=== PATIENT | female | born 1955 | race Caucasian/White ===

== ENCOUNTER 2016-05-24 07:49 | Day surgery (SDC) | payer MEDICARE, OTHER ==
[~2016-05-24] VITALS: Ht 170.2 cm; Wt 77.1 kg
[~2016-05-24 07:49] MED LIST: ASCORBIC ACD1000 MG PO; IBUPROFEN600 MG PO; LEVOTHYROXIN50 MCG PO; MECLIZINE25 M1 PO; PREVACID30 M3 PO; ULTRAM50 M1 PO; ZENPEP5000 UNIT PO; ZOFRAN ODT4 MG PO
[2016-05-24 10:33] VITALS: BP 118/65
== END 2016-05-24 10:50 | disposition home or self-care (01) ==
LOC: ENDO 07:49 → ORM 09:30 → ENDO 09:30
PROVIDERS: ATTEND Internal Medicine Gastroenterology
PROC: 0DBH8ZX Excision of Cecum, Via Natural or Artificial Opening Endoscopic, Diagnostic (ICD-10-PCS; principal; 2016-05-24)
PROC: 0DBN8ZX Excision of Sigmoid Colon, Via Natural or Artificial Opening Endoscopic, Diagnostic (ICD-10-PCS; 2016-05-24)
PROC: 0DBP8ZX Excision of Rectum, Via Natural or Artificial Opening Endoscopic, Diagnostic (ICD-10-PCS; 2016-05-24)
DX: Z12.11 Encounter for screening for malignant neoplasm of colon (principal); D12.5 Benign neoplasm of sigmoid colon; D12.0 Benign neoplasm of cecum; K62.1 Rectal polyp; K64.4 Residual hemorrhoidal skin tags; K64.8 Other hemorrhoids; K57.30 Diverticulosis of large intestine without perforation or abscess without bleeding; K74.60 Unspecified cirrhosis of liver; I85.10 Secondary esophageal varices without bleeding; B19.20 Unspecified viral hepatitis C without hepatic coma; R18.8 Other ascites; K29.60 Other gastritis without bleeding; K21.9 Gastro-esophageal reflux disease without esophagitis; Z86.010 Personal history of colon polyps; F17.210 Nicotine dependence, cigarettes, uncomplicated; E03.9 Hypothyroidism, unspecified

== ENCOUNTER 2017-02-19 14:55 | Emergency (ER) | payer MEDICARE, OTHER ==
[~2017-02-19] VITALS: Ht 170.2 cm; Wt 85.0 kg
[2017-02-19] MEDS ORDERED: FLEXERIL PO ×2 (15:19→15:35)
[2017-02-19] MEDS ORDERED: LORTAB 5/3255 MG PO (15:19)
[2017-02-19] MEDS ORDERED: PREDNISONE50 MG PO ×2 (15:19→15:35)
[2017-02-19 15:39] VITALS: BP 138/88
== END 2017-02-19 15:39 | disposition home or self-care (01) ==
LOC: ED 14:55
DX: S39.012A Strain of muscle, fascia and tendon of lower back, initial encounter (principal); F17.210 Nicotine dependence, cigarettes, uncomplicated; X50.0XXA Overexertion from strenuous movement or load, initial encounter; Y92.009 Unspecified place in unspecified non-institutional (private) residence as the place of occurrence of the external cause

== ENCOUNTER 2017-09-13 20:37 | Emergency (ER) | payer MEDICARE, OTHER ==
[~2017-09-13] VITALS: Ht 170.2 cm; Wt 81.8 kg
[~2017-09-13 20:37] MED LIST changes: +FLEXERIL PO; +LORTAB 5/3255 MG PO; +PREDNISONE50 MG PO
[2017-09-13 21:36] LABS: HEMATOCRIT 32.5 % (37.0-47.0); HEMOGLOBIN 11.6 g/dl (12.0-16.0); IMMATURE GRANULOCYTES 1.3 % (0.0-5.0); MEAN CELL VOLUME 96.4 fL CALC (80.0-100.0); MEAN CORPUSCULAR HGB 34.4 pG CALC (26.0-32.0); MEAN CORPUSCULAR HGB CONC 35.7 g/L CALC (32.0-36.0); NEUT# 15.7 thou/uL (2.00-7.15); RED BLOOD COUNT 3.37 mill/uL (4.20-5.60); RED CELL DISTRI WIDTH 15.7 % (11.5-15.5)
[2017-09-13 21:45] LABS: ALBUMIN 2.7 g/dL (3.2-5.0); ALKALINE PHOSPHATASE 153 u/l (38-126); BILIRUBIN, TOTAL 5.1 mg/dL (0.0-1.4); BUN 15 mg/dL (7-17); BUN/CREATININE RATIO 14 (12-20 (CALC)); CARBON DIOXIDE 24 mmol/l (22-30); GFR 57 ML/MIN (>=60 (CALC)); GFR FOR AFR.AMER. > 60 ML/MIN (>=60 (CALC)); LIPASE 361 u/l (23-300); SGOT/AST 48 u/l (14-36); SGPT/ALT 26 u/l (9-52); TOTAL PROTEIN 6.3 g/dL (6.3-8.2)
[2017-09-13 21:47] LABS: ANION GAP 13 (6-22 (CALC)); CHLORIDE 97 mmol/l (95-108); POTASSIUM 4.7 mmol/l (3.5-5.1); SODIUM 129 mmol/l (137-146)
[2017-09-13 23:06] LABS: URINE BLOOD DIPSTICK NEGATIVE (NEGATIVE); URINE COLOR YELLOW; URINE GLUCOSE - DIPSTICK 100 mg/dL (NEGATIVE); URINE KETONE TRACE mg/dL (NEGATIVE); URINE LEUK ESTERASE NEGATIVE (NEGATIVE); URINE PROTEIN - DIPSTICK 30 mg/dL (NEG-TRACE); URINE SPECIFIC GRAVITY 1.015
[2017-09-13 23:08] LABS: URINE CLARITY CLEAR; URINE NITRITE - DIPSTICK POSITIVE (Negative)
[2017-09-13 23:09] LABS: URINE BILIRUBIN - DIPSTICK SMALL (NEGATIVE)
[2017-09-13 23:14] LABS: URINE BACTERIA MANY hpf; URINE FINE GRAN CAST FEW lpf; URINE HYALINE CAST FEW lpf (NONE-RARE); URINE MUCUS FEW hpf (NONE-FEW); URINE RBC 0-2 RBC/hpf (0-5); URINE SQUAMOUS EPITHELIAL CELL FEW EPI/hpf (0-FEW)
[2017-09-14 02:40] VITALS: BP 90/51
== END 2017-09-14 02:41 | disposition short-term general hospital (02) ==
LOC: ED 20:37
PROVIDERS: Emergency Medicine
DX: K74.60 Unspecified cirrhosis of liver (principal); R18.8 Other ascites; N39.0 Urinary tract infection, site not specified; E87.2 Acidosis; B19.20 Unspecified viral hepatitis C without hepatic coma; D72.829 Elevated white blood cell count, unspecified; F17.210 Nicotine dependence, cigarettes, uncomplicated

== ENCOUNTER 2017-12-16 15:29 | Emergency (ER) | payer MEDICARE, OTHER ==
[~2017-12-16] VITALS: Ht 170.2 cm; Wt 69.9 kg
[~2017-12-16 15:29] MED LIST changes: +FUROSEMIDE20 MG PO; +LEVAQUIN500 MG PO; +LYRICA50 MG PO; +PROAMATINE2.5 MG PO; +SPIRONOLACTONE50 MG PO
[2017-12-16] MEDS ORDERED: [UNRECOGNIZED DRUG - REMARK] (15:59)
[2017-12-16] MEDS ORDERED: PREDNISONE20 MG PO (16:00)
[2017-12-16] MEDS ORDERED: [UNRECOGNIZED DRUG - OTHER] (16:02)
[2017-12-16] MEDS ORDERED: VOLTAREN - GENE75 MG PO (16:13)
[2017-12-16] MEDS ORDERED: TRAMADOL HCL50 MG PO (16:13)
[2017-12-16 16:29] VITALS: BP 127/73
[2017-12-17] MEDS ORDERED: CELLCEPT500 MG PO (10:46)
[2017-12-17] MEDS ORDERED: ASTAGRAF XL1 MG PO (10:46)
[2017-12-17] MEDS ORDERED: VALCYTE450 MG PO (10:47)
[2017-12-17] MEDS ORDERED: ASPIRIN81 MG PO (10:47)
[2017-12-17] MEDS ORDERED: PEPCID20 MG PO (10:47)
[2017-12-17] MEDS ORDERED: WALKER/ADULT/FOLDING (11:07)
== END 2017-12-16 16:29 | disposition home or self-care (01) ==
LOC: ED 15:29
DX: S83.91XA Sprain of unspecified site of right knee, initial encounter (principal); W01.0XXA Fall on same level from slipping, tripping and stumbling without subsequent striking against object, initial encounter; Y93.01 Activity, walking, marching and hiking; Y92.007 Garden or yard of unspecified non-institutional (private) residence as the place of occurrence of the external cause; M25.561 Pain in right knee

== ENCOUNTER 2017-12-17 10:31 | Emergency (ER) | payer MEDICARE, OTHER ==
[~2017-12-17] VITALS: Ht 170.2 cm; Wt 69.0 kg
[~2017-12-17 10:31] MED LIST changes: +PREDNISONE20 MG PO; +TRAMADOL HCL50 MG PO; +VOLTAREN - GENE75 MG PO; +[UNRECOGNIZED DRUG - OTHER]; +[UNRECOGNIZED DRUG - REMARK]
[2017-12-17] MEDS ORDERED: ASTAGRAF XL1 MG PO (10:46)
[2017-12-17] MEDS ORDERED: CELLCEPT500 MG PO (10:46)
[2017-12-17] MEDS ORDERED: VALCYTE450 MG PO (10:47)
[2017-12-17] MEDS ORDERED: ASPIRIN81 MG PO (10:47)
[2017-12-17] MEDS ORDERED: PEPCID20 MG PO (10:47)
[2017-12-17] MEDS ORDERED: WALKER/ADULT/FOLDING (11:07)
[2017-12-17 11:19] VITALS: BP 116/73
== END 2017-12-17 11:39 | disposition home or self-care (01) ==
LOC: ED 10:31
PROC: 2W3LX1Z Immobilization of Right Lower Extremity using Splint (ICD-10-PCS; principal; 2017-12-17)
DX: S83.91XA Sprain of unspecified site of right knee, initial encounter (principal); M25.561 Pain in right knee; X50.1XXA Overexertion from prolonged static or awkward postures, initial encounter; Y92.009 Unspecified place in unspecified non-institutional (private) residence as the place of occurrence of the external cause
CPT/HCPCS: L1830

== ENCOUNTER 2021-03-20 21:48 | Emergency (ER) | payer MEDICARE, OTHER ==
[~2021-03-20] VITALS: Ht 170.2 cm; Wt 47.7 kg
[~2021-03-20 21:48] MED LIST changes: +ASPIRIN81 MG PO; +ASTAGRAF XL1 MG PO; +CELLCEPT500 MG PO; +PEPCID20 MG PO; +VALCYTE450 MG PO; +WALKER/ADULT/FOLDING
[2021-03-20] MEDS ORDERED: OXYCODONE20 M1 PO (22:51)
[2021-03-20 23:13] LABS: IMMATURE GRANULOCYTES 0.4 % (0.0-5.0); MEAN CELL VOLUME 97.8 fL CALC (80.0-100.0); MEAN CORPUSCULAR HGB 30.7 pG CALC (26.0-32.0); MEAN CORPUSCULAR HGB CONC 31.4 g/dL CAL (32.0-36.0); NEUT# 3.14 thou/uL (2.00-7.15); RED BLOOD COUNT 2.25 mill/uL (4.20-5.60); RED CELL DISTRI WIDTH 20.8 % (11.5-15.5)
[2021-03-20 23:25] LABS: HEMOGLOBIN 6.9 g/dl (12.0-16.0)
[2021-03-20 23:27] LABS: ALBUMIN 2.7 g/dL (3.2-5.0); CREATININE 1.3 mg/dL (0.5-1.0); POTASSIUM 3.4 mmol/l (3.5-5.1); TOTAL PROTEIN 7.3 g/dL (6.3-8.2)
[2021-03-20 23:38] LABS: BILIRUBIN, TOTAL 1.7 mg/dL (0.0-1.4)
[2021-03-20 23:53] LABS: ACT PARTIAL THROMBO TIME 25.9 SECONDS (20.0-32.5); INTERNATIONAL NORMALIZED RATIO 1.3 RATIO (0.7-1.3); PROTHROMBIN TIME 13.8 SECONDS (9.0-12.5)
[2021-03-21 01:00] LABS: URINE BILIRUBIN - DIPSTICK NEGATIVE (NEGATIVE); URINE BLOOD DIPSTICK NEGATIVE (NEGATIVE); URINE COLOR YELLOW; URINE GLUCOSE - DIPSTICK NEGATIVE (NEGATIVE); URINE KETONE NEGATIVE (NEGATIVE); URINE LEUK ESTERASE NEGATIVE (NEGATIVE); URINE PH 5.5 (4.5-8.0); URINE PROTEIN - DIPSTICK TRACE mg/dL (NEG-TRACE); URINE UROBILINOGEN - DIPSTICK 0.2 E.U./dL (0.2)
[2021-03-21 01:03] VITALS: BP 114/78
[2021-03-21 01:07] LABS: URINE NITRITE - DIPSTICK NEGATIVE (Negative)
[2021-03-21 01:19] VITALS: BP 123/62
== END 2021-03-21 01:21 | disposition short-term general hospital (02) ==
LOC: ED 21:48
PROC: 0T9B70Z Drainage of Bladder with Drainage Device, Via Natural or Artificial Opening (ICD-10-PCS; principal; 2021-03-21)
PROC: 30233N1 Transfusion of Nonautologous Red Blood Cells into Peripheral Vein, Percutaneous Approach (ICD-10-PCS; 2021-03-21)
DX: T84.124A Displacement of internal fixation device of right femur, initial encounter (principal); S72.141A Displaced intertrochanteric fracture of right femur, initial encounter for closed fracture; S32.591A Other specified fracture of right pubis, initial encounter for closed fracture; D64.9 Anemia, unspecified; R19.5 Other fecal abnormalities; F17.200 Nicotine dependence, unspecified, uncomplicated; Y83.1 Surgical operation with implant of artificial internal device as the cause of abnormal reaction of the patient, or of later complication, without mention of misadventure at the time of the procedure; X58.XXXA Exposure to other specified factors, initial encounter; Z94.4 Liver transplant status; Z79.82 Long term (current) use of aspirin
CPT/HCPCS: P9016; S0164

== ENCOUNTER 2021-06-14 18:41 | Emergency (ER) | payer MEDICARE, OTHER ==
[~2021-06-14] VITALS: Ht 170.2 cm; Wt 52.0 kg
[~2021-06-14 18:41] MED LIST changes: +OXYCODONE20 M1 PO
[2021-06-14] MEDS ORDERED: PERCOCET 10/31 COMBO PO (20:08)
[2021-06-14 20:50] VITALS: BP 122/66
== END 2021-06-14 20:50 | disposition home or self-care (01) ==
LOC: ED 18:41
DX: M25.551 Pain in right hip (principal); Z95.5 Presence of coronary angioplasty implant and graft; Z94.4 Liver transplant status; F17.200 Nicotine dependence, unspecified, uncomplicated; Z98.890 Other specified postprocedural states

== ENCOUNTER 2021-06-19 12:21 | Emergency (ER) | payer MEDICARE, OTHER ==
[~2021-06-19] VITALS: Ht 170.2 cm; Wt 110.0 kg
[2021-06-19] VITALS (7 sets, daily range): BP systolic 108–130; BP diastolic 57–85
[~2021-06-19 12:21] MED LIST changes: +PERCOCET 10/31 COMBO PO
[2021-06-19] MEDS ORDERED: ONDANSETRON4 MG PO (13:51)
[2021-06-19] MEDS ORDERED: TRAMADOL HCL50 MG PO (13:51)
== END 2021-06-19 14:23 | disposition home or self-care (01) ==
LOC: ED 12:21
DX: G89.29 Other chronic pain (principal); M25.551 Pain in right hip; R11.0 Nausea; R19.7 Diarrhea, unspecified; F17.200 Nicotine dependence, unspecified, uncomplicated; Z94.4 Liver transplant status; Z95.5 Presence of coronary angioplasty implant and graft

== ENCOUNTER 2021-06-28 10:21 | Inpatient (IN) | payer MEDICARE, OTHER ==
[2021-06-28] VITALS (35 sets, daily range): BP systolic 62–123; BP diastolic 39–83
[~2021-06-28] VITALS: Ht 170.2 cm; Wt 49.0 kg
[~2021-06-28 10:21] MED LIST changes: +ONDANSETRON4 MG PO
--- NOTE | 2021-06-28 10:21 | NUR ---
PT BROUGHT VIA EMS FROM HOME. PT TRANSFERED BY STAFF FROM STRETCHER TO STRETCHER
[2021-06-28 10:59] LABS: HEMATOCRIT 24.1 % (37.0-47.0); HEMOGLOBIN 7.8 g/dl (12.0-16.0); IMMATURE GRANULOCYTES 1.1 % (0.0-5.0); MEAN CELL VOLUME 108.6 fL CALC (80.0-100.0); MEAN CORPUSCULAR HGB 35.1 pG CALC (26.0-32.0); MEAN CORPUSCULAR HGB CONC 32.4 g/dL CAL (32.0-36.0); NEUT# 7.65 thou/uL (2.00-7.15); RED BLOOD COUNT 2.22 mill/uL (4.20-5.60)
--- NOTE | 2021-06-28 11:00 | NUR ---
Reassessment of patient completed. No distress noted.
[2021-06-28 11:29] LABS: ALBUMIN 2.9 g/dL (3.2-5.0); ALKALINE PHOSPHATASE 175 u/l (38-126); BILIRUBIN, TOTAL 1.5 mg/dL (0.0-1.4); BUN 29 mg/dL (8-23); BUN/CREATININE RATIO 19 (12-20 (CALC)); CHLORIDE 114 mmol/l (95-108); CREATININE 1.5 mg/dL (0.5-1.0); GFR 35 ML/MIN (>=60 (CALC)); GFR FOR AFR.AMER. 42 ML/MIN (>=60 (CALC)); POTASSIUM 3.8 mmol/l (3.5-5.1); SGOT/AST 45 u/l (9-36); SODIUM 141 mmol/l (137-146); TOTAL PROTEIN 7.8 g/dL (6.3-8.2)
[2021-06-28 11:30] LABS: ANION GAP 16 (6-22 (CALC)); CARBON DIOXIDE 15 mmol/l (22-30)
--- NOTE | 2021-06-28 12:10 | NUR ---
CENTRAL LINE PLACED, LEVO STARTED AT 1215
[2021-06-28 12:38] LABS: URINE BILIRUBIN - DIPSTICK NEGATIVE (NEGATIVE); URINE BLOOD DIPSTICK NEGATIVE (NEGATIVE); URINE GLUCOSE - DIPSTICK NEGATIVE (NEGATIVE); URINE KETONE NEGATIVE (NEGATIVE); URINE LEUK ESTERASE NEGATIVE (NEGATIVE); URINE PROTEIN - DIPSTICK 100 mg/dL (NEG-TRACE); URINE SPECIFIC GRAVITY >=1.030
[2021-06-28 12:45] LABS: URINE COLOR DK. YELLOW; URINE EPITHELIAL CELLS MODERATE EPI/hpf (0-FEW); URINE MUCUS FEW hpf (NONE-FEW); URINE NITRITE - DIPSTICK NEGATIVE (Negative)
--- NOTE | 2021-06-28 13:00 | NUR ---
Reassessment of patient completed. No distress noted.
--- NOTE | 2021-06-28 14:00 | NUR ---
LEVO D/C'D AT THIS TIME PER DR. HUDSON. VSS. BP MAINTAINING WITHOUT MEDICATION
--- NOTE | 2021-06-28 14:14 | NUR ---
Reassessment of patient completed. No distress noted.
--- NOTE | 2021-06-28 15:00 | NUR ---
Reassessment of patient completed. No distress noted.
--- NOTE | 2021-06-28 16:05 | NUR ---
SPOKE WITH PT SON REGAURDING PT ADMISSION STATUS. PT VSS RESTING COMFORTBALY IN BED AT THIS TIME.
--- NOTE | 2021-06-28 16:31 | NUR ---
Reassessment of patient completed. No distress noted.
--- NOTE | 2021-06-28 17:22 | NUR ---
REPORT CALLED TO ANTHONY CARLSON ON [facility] AT THIS TIME
--- NOTE | 2021-06-28 17:44 | NUR ---
PT ARRIVED VIA STRETCHER WITH [facility] [employer] ANALYST. PT C/O OF PAIN ON RIGHT SHOULDER AND HIP. PT HAS RIJ TRIPLE LUMEN, FLUSHED. ORIENTATED PT TO ROOM. FALL/SAFTEY PRECAUTION IN PLACE. CALL LIGHT WITHIN REACH
[2021-06-29 00:08] VITALS: BP 92/54
[2021-06-29 04:18] VITALS: BP 98/56
--- NOTE | 2021-06-29 05:08 | NUR ---
PT C/O OF PAIN. RATING PAIN 9/10 TO RIGHT SHOULDER AND HIP. RECEIVED ORDER FROM DR ORTIZ FOR 1X DOSE OF TRAMADOL 50MG PO 1 X DOSE AND LIDOCAINE PAIN 4% TO SHOULDER AND HIP.
[2021-06-29 06:02] LABS: CREATININE 1.3 mg/dL (0.5-1.0)
[2021-06-29 06:04] LABS: POTASSIUM 3.6 mmol/l (3.5-5.1)
[2021-06-29 06:11] LABS: HEMATOCRIT 20.3 % (37.0-47.0); MEAN CELL VOLUME 106.3 fL CALC (80.0-100.0); MEAN CORPUSCULAR HGB 35.1 pG CALC (26.0-32.0); RED BLOOD COUNT 1.91 mill/uL (4.20-5.60); RED CELL DISTRI WIDTH 21.6 % (11.5-15.5)
[2021-06-29 06:13] LABS: HEMOGLOBIN 6.7 g/dl (12.0-16.0)
--- NOTE | 2021-06-29 06:17 | NUR ---
PT hgb is 6.7. Received order from Dr Clark for 1 unit of PRBC.
--- NOTE | 2021-06-29 06:20 | NUR ---
PATIENT STATED EAERLIER SHE WAS HAVING HIP AND SHOULDER PAIN. ORDER WAS RECEIVED FOR LIDOCAINE PATCH BUT PATIENT NOW STATES THE PAIN IS ONLY IN HER RIGHT SHOULDER. LIDOCAINE PATCH APPLIED TO RIGHT SHOULDER ONLY
[2021-06-29 07:16] VITALS: BP 107/62
--- NOTE | 2021-06-29 07:40 | NUR ---
Patient is screened for intervention and no needs are identified at this time
[2021-06-29 15:50] VITALS: BP 125/83
--- NOTE | 2021-06-29 19:20 | NUR ---
RECEIVED REPORT FROM ARTEMIO CARLSON
[2021-06-29 19:24] VITALS: BP 123/76
--- NOTE | 2021-06-29 21:01 | NUR ---
Spoke with Dr Clark and updated MD of the patient blood transfusion. Md aware still waiting. No new orders
[2021-06-29 23:36] VITALS: BP 105/66
[2021-06-30 03:36] VITALS: BP 127/80
[2021-06-30 05:32] LABS: HEMATOCRIT 22.4 % (37.0-47.0); HEMOGLOBIN 7.5 g/dl (12.0-16.0); MEAN CELL VOLUME 106.7 fL CALC (80.0-100.0); MEAN CORPUSCULAR HGB 35.7 pG CALC (26.0-32.0); MEAN CORPUSCULAR HGB CONC 33.5 g/dL CAL (32.0-36.0); RED BLOOD COUNT 2.1 mill/uL (4.20-5.60); RED CELL DISTRI WIDTH 21.1 % (11.5-15.5)
[2021-06-30 05:41] LABS: ANION GAP 9 (6-22 (CALC)); BUN 21 mg/dL (8-23); BUN/CREATININE RATIO 19 (12-20 (CALC)); CARBON DIOXIDE 19 mmol/l (22-30); CHLORIDE 113 mmol/l (95-108); CREATININE 1.1 mg/dL (0.5-1.0); GFR 50 ML/MIN (>=60 (CALC)); GFR FOR AFR.AMER. > 60 ML/MIN (>=60 (CALC)); MAGNESIUM 1.9 mg/dL (1.6-2.3); POTASSIUM 3.8 mmol/l (3.5-5.1); SODIUM 138 mmol/l (137-146)
[2021-06-30 06:50] VITALS: BP 131/62
--- NOTE | 2021-06-30 08:00 | NUR ---
PATIENT AWAKE, ALERT, C/O PAIN, IRRITABLE, WANTS TO GO HOME TODAY. NO OTHER SIGNS OR SYMPTOMS OF DISTRESS NOTED OR VOICED.
[2021-06-30 10:20] VITALS: BP 108/72
[2021-06-30] MEDS ORDERED: OXYCODONE5 M1 PO (11:10)
== END 2021-06-30 11:53 | disposition home health service (06) | DRG 315 ==
LOC: ED 10:21 → ED-I 13:55 → ED 16:01 → MS2 16:02
PROVIDERS: Family Medicine; ADMIT Hospitalist; ATTEND Hospitalist
PROC: 02HV33Z Insertion of Infusion Device into Superior Vena Cava, Percutaneous Approach (ICD-10-PCS; principal; 2021-06-28)
DX: I95.9 Hypotension, unspecified (principal); I47.1 Supraventricular tachycardia; Z94.4 Liver transplant status; D64.9 Anemia, unspecified; G89.29 Other chronic pain; M54.2 Cervicalgia; M25.512 Pain in left shoulder; M25.552 Pain in left hip; S31.000A Unspecified open wound of lower back and pelvis without penetration into retroperitoneum, initial encounter; I10 Essential (primary) hypertension; J44.9 Chronic obstructive pulmonary disease, unspecified; I48.91 Unspecified atrial fibrillation; E03.9 Hypothyroidism, unspecified; F17.200 Nicotine dependence, unspecified, uncomplicated; X58.XXXA Exposure to other specified factors, initial encounter; Z95.5 Presence of coronary angioplasty implant and graft; Z20.822 Contact with and (suspected) exposure to COVID-19
CPT/HCPCS: Q9967